=== PATIENT | female | born 1975 | race Caucasian/White ===

== ENCOUNTER → 2021-03-22 | Outpatient (CLI) | payer OTHER ==
[~2021-03-22] MED LIST: BENADRYL25 MG PO; CARISOPRODOL 3350 M1 PO; CIPROFLOXACIN500 M1 PO; COLACE100 MG PO; HYDROCODON-ACE1 EAC1 PO; HYDROCODON-ACE1 EAC7 PO; RELAFEN750 MG PO; SAVELLA50 MG PO; SLOW FE 160MG160 MG PO
== END ==
LOC: SJCVCIMAG 07:33
PROVIDERS: ATTEND Internal Medicine
DX: R06.00 Dyspnea, unspecified (principal)